=== PATIENT | female | born 1965 | race Caucasian/White ===

== ENCOUNTER 2017-05-17 09:24 | Outpatient (CLI) | payer OTHER ==
[2017-05-17 09:39] LABS: BASOPHILS % 0.3 (0.0-1.5); EOSINOPHILS % 3.5 % (0.0-6.8); MEAN CORPUSCULAR HEMOGLOBIN 27.3 pg (28.0-34.0); MEAN CORPUSCULAR VOLUME 87.1 fl (80.0-100.0); MONOCYTES % 5.2 % (0.0-11.0); NEUTROPHILS # 3.9 # k/uL (1.4-7.7)
== END 2017-05-17 10:00 ==
LOC: LAB 09:24
PROVIDERS: ATTEND Physician Assistant
DX: R53.83 Other fatigue (principal); Z86.39 Personal history of other endocrine, nutritional and metabolic disease
CPT/HCPCS: 36415; 85025